=== PATIENT | male | born 1945 | race Caucasian/White ===

== ENCOUNTER 2024-11-24 10:16 | Emergency (ER) | payer OTHER, SELFPAY ==
[2024-11-24 10:21] VITALS: BP 128/80
--- NOTE | 2024-11-24 11:26 | ED.GENMED ---
History of Present Illness
<Rocio Puri MD, Resident - Last Filed: 11/24/24 14:09>
General
Chief Complaint: Musculo-Skeletal Complaint
Source: patient and family
Exam Limitations: none
Time Seen by Provider: 11/24/24 10:55
Nursing documentation reviewed up to this point in time: agreed with
History of Present Illness
History of Present Illness:
79yo M with H CAD/AZ s/p stenting/pacemaker, s/p bilateral knee arthroscopy, gouty arthritis who presents to ED from home for right leg pain. The pain began in his right buttocks a few days ago and has been intermittent. Last night the pain
worsened and he has shooting pain down the front and outside of thigh, and knee pain. No alleviating factors including aleve, topical icyhot, rest, positional changes. Aggravating factors include raising leg or weightbearing-- though he is still
able to walk on it and denies weakness. He denies inciting injury. He has had muscle spasms in the past, though this feels different. Otherwise he is in his usual state of health.
Past History
<Rocio Puri MD, Resident - Last Filed: 11/24/24 14:09>
Past History
ED Past Medical History: CAD, CHF (HFrEF), GERD, HTN, Hypercholesterolemia, IDDM, AZ (January 2016 and September 2006), Renal failure and Other (Acute gouty arthritis, upper GI bleed, DJD, carotid artery stenosis, AV block)
ED Past Surgical History: Cardiac (cardiac cath, stenting, CABG 2019, pacemaker), Orthopedic (bilateral knee arthroscopy), Tonsilectomy and Other (R CEA 2019)
Social History
Tobacco: Former smoker
Alcohol: Occasional
Drug: None
Personal:
Living: with roommate
Family History
Family History: Hypertension
Review of Systems
<Rocio Puri MD, Resident - Last Filed: 11/24/24 14:09>
Review of Systems
Allergies reviewed?: Yes
Constitutional: Reports no symptoms
EENT: Reports no symptoms
Respiratory: Reports no symptoms
Cardiac: Reports no symptoms
ABD/GI: Reports no symptoms
: Reports no symptoms
Musculoskeletal: Reports other (see HPI)
Skin: Reports no symptoms
Neurological: Reports no symptoms
Endocrine: Reports no symptoms
Hematologic/Lymphatic: Reports no symptoms
Psychiatric: Reports no symptoms
Phy Exam
<Rocio Puri MD, Resident - Last Filed: 11/24/24 14:09>
Physical Exam
Physical Exam:
no visible trauma or visible/palpable deformity of right lower extremity, no erythema or joint effusions
tender to palpation right buttocks, right trochanteric bursa, right inferior knee
positive straight leg raise on right
active and passive range of motion in tact, 5/5 muscle strength throughout bilateral lower extremities
sensation intact bilateral lower extremities-- slightly diminished at baseline from diabetic neuropathy
General Physical Exam
General Presentation: well appearing and no apparent distress
General age: appears stated age
General Skin: warm and dry
General Habitus: normal and elderly
General Mental: alert
General Hydration: appears well hydrated
ENT Exam
ENT Exam: EOMI and normocephalic
Cardiovascular Exam
Cardiovascular Exam: regular rate/rhythm, no edema, no JVD and no murmur
Heart Sounds: normal
Pulmonary Exam
Pulmonary Exam: lungs clear, no respiratory distress, no crackles, no wheezing and no cough
Oxygen Status: room air
Respirations: other (nonlabored breathing)
Gastrointestinal Exam
Gastrointestinal Exam: normal bowel sounds, non tender, soft and non distended
Neurological Exam
Neurological Exam: alert, oriented x3, no motor deficits (motor strength 5/5 diffusely) and no sensory deficits
Musculoskeletal Exam
Musculoskeletal Exam: full ROM and no edema
Skin Exam
Skin Exam: normal color, warm/dry and no rash
Psychiatric Exam
Psychiatric Exam: normal mood/affect
Course
<Rocio Puri MD, Resident - Last Filed: 11/24/24 14:09>
Orders/Labs/Results
Orders:
Orders
11/24/24 11:56
Lidocaine [Lidocaine 4% Patch] 1 patch TOPICAL ONCE ONE
Apply Lidocaine patch(s) to:: right lumbar
11/24/24 11:57
Ketorolac [Toradol] 15 mg IM ONCE ONE
Vital Signs
Initial and Last Documented VS:
Initial Vital Signs
Temp Pulse Resp BP Pulse Ox
97.2 F 84 18 128/80 98
11/24/24 10:21 11/24/24 10:21 11/24/24 10:21 11/24/24 10:21 11/24/24 10:21
Last Documented Vital Signs
Temp Pulse Resp BP Pulse Ox
98.2 F 75 18 132/76 98
11/24/24 13:02 11/24/24 13:02 11/24/24 13:02 11/24/24 13:02 11/24/24 13:02
<Vanessa Conte, - Last Filed: 11/24/24 12:01>
Orders/Labs/Results
Orders:
Orders
11/24/24 11:56
Lidocaine [Lidocaine 4% Patch] 1 patch TOPICAL ONCE ONE
Apply Lidocaine patch(s) to:: right lumbar
11/24/24 11:57
Ketorolac [Toradol] 15 mg IM ONCE ONE
Vital Signs
Initial and Last Documented VS:
Initial Vital Signs
Temp Pulse Resp BP Pulse Ox
97.2 F 84 18 128/80 98
11/24/24 10:21 11/24/24 10:21 11/24/24 10:21 11/24/24 10:21 11/24/24 10:21
Last Documented Vital Signs
Temp Pulse Resp BP Pulse Ox
98.2 F 75 18 132/76 98
11/24/24 13:02 11/24/24 13:02 11/24/24 13:02 11/24/24 13:02 11/24/24 13:02
<Rocio Puri MD, Resident - Last Filed: 11/24/24 14:09>
MDM/Problems Addressed
Differential Diagnosis Includes:
sciatic pain, bursitis, muscle strain/spasm, chronic arthritis
not suspicious for septic arthritis or acute gouty flare given physical exam
also not suspicious for fracture or traumatic injury
MDM/Problems Addressed:
history and physical exam most consistent with sciatic pain
no indication for obtaining xrays in ED
will give im toradol and lidocaine patch while here for pain management
recommend supportive measures at home including ibuprofen, lidocaine patch
can try muscle relaxant with caution-- discussed side effects with patient and family
considered trial of steroids however deferred due to diabetes requiring insulin and unknown sugar control (patient does not check blood sugars at home)
recommend following up with pcp, may benefit from physical therapy
reviewed return to ED precautions
discussed above with patient and family at bedside, they are understanding and agreeable to plan
Chronic conditions affecting care: DM, HTN and CAD
<Rocio Puri MD, Resident - Last Filed: 11/24/24 14:09>
*Critical Care Note
Total Time (30-74mins, 75-104mins- exclusive of procedures): Not Applicable
ED Attending Note
<Rocio Puri MD, Resident - Last Filed: 11/24/24 14:09>
-
Portions of this chart may have been created with voice recognition software.� Occasional wrong word or��sound alike� substitutions may have occurred due to the inherent limitations of voice recognition software.
<Vanessa Conte DO - Last Filed: 11/24/24 12:01>
ED Attending Note
Patient seen and examined by attending physician: Yes
I performed the substantive portion of visit, reviewed & personally made and approve the management plan that is documented in note by myself or ANA PAULA.: Yes
I performed a history and physical exam of patient and discussed management with resident, I reviewed resident's note and agree with documented findings and plan of care.: Yes
ED Attending Note:
79-year-old male with history of CKD, diabetes, CAD presenting to the emergency department for right-sided back pain. Patient reports right lower lumbar/buttock pain which started last evening, worsened today. Pain radiates down his leg, stops at
his knee. Pain is described as a shooting and burning pain. Denies inciting injury or trauma. Tried Aleve with moderate relief of pain. Denies numbness or tingling to his leg. Denies any recent fever or illness. Denies bowel or bladder issues.
Vital signs are normal.
On exam, patient is resting comfortably, no acute distress or discomfort. Mild generalized tenderness to the right lower lumbar/gluteal region. No overlying skin changes. No swelling or deformity to the right lower extremity with range of motion
intact. Distal sensation and pulses intact to the right lower extremity. No swelling or deformity to the right knee. No erythema or warmth to the extremity, no infectious findings. Symptoms appear most consistent with acute sciatica. No
concerning features on exam. No indication for imaging. Will treat patient with Toradol and lidocaine patch. Will prescribe muscle relaxer and ibuprofen, as well as lidocaine patch. Cautioned against somnolence for muscle relaxer. Otherwise
feel stable for discharge with outpatient PCP follow-up. Explained that if symptoms or not getting better, may need follow-up for physical therapy
Discharge Plan
Departure
Patient Disposition: Home (Routine Discharge)
Date of Disposition: 11/24/24
Time of Disposition: 12:13
Patient with high blood pressure during this ER visit?: No
Discharge Problem:
Sciatic leg pain
Instructions: Sciatica ED
Prescriptions:
New
cyclobenzaprine 10 mg tablet
10 mg PO BID PRN (Reason: muscle spasm) Qty: 14 0RF
ibuprofen 600 mg tablet
600 mg PO Q8H PRN (Reason: Pain) Qty: 20 0RF
lidocaine 4 % adhesive patch,medicated
1 patch topical BID PRN (Reason: Pain) Qty: 10 0RF
No Action
aspirin 81 MG tablet,delayed release (DR/EC)
81 mg PO DAILY Qty: 0 0RF
(DME) pen needle, diabetic 1 EACH needle
1 ea MC QID Qty: 200 0RF
Rx Instructions:
E11.65
BD RADHA pen needles
clopidogrel 75 MG tablet
75 mg PO DAILY Qty: 30 3RF
metoprolol succinate 25 MG tablet extended release 24 hr
25 mg PO DAILY Qty: 30 1RF
furosemide [Lasix] 20 MG tablet
20 mg PO DAILY Qty: 5 0RF
isosorbide mononitrate 10 MG tablet
10 mg PO BID
insulin glargine [Lantus Solostar U-100 Insulin] 300 UNITS/3 ML insulin pen
16 units SC DAILY@0800
atorvastatin 80 mg Tablet
80 mg PO QPM
fenofibrate nanocrystallized 145 mg Tablet
145 mg PO DAILY
Jardiance 25 mg Tablet
25 mg PO DAILY
nitroglycerin [nitroglycerin] 0.4 mg tablet, sublingual
0.4 mg sublingual [id number] PRN (Reason: chest pain) Qty: 25 2RF
insulin aspart U-100 [Novolog FlexPen U-100 Insulin] 300 UNITS/3 ML insulin pen
8 unit SC AC Qty: 0 0RF
Referrals:
Rich Cardona DO [Family Provider] -
Interventions
Interventions:
*Risk Screen - Suicide Last Done: 11/24/24 10:21
*General Assessment Last Done: 11/24/24 10:21
*Neglect/Abuse Screening Last Done: 11/24/24 10:21
ED- Fall Risk Assessment Last Done: 11/24/24 12:37
*ED COVID-19 Vaccine History Last Done: 11/24/24 12:41
*Nursing Disposition Last Done: 11/24/24 13:02
ED-Musculoskeletal Assessment Last Done: 11/24/24 12:37
Discharge Date and Time
Discharge Date/Time: 11/24/24 13:00
Print Language: KOSOVAN
[2024-11-24 12:37] VITALS: BP 132/78; BMI 26.7
[2024-11-24] MEDS: TORADOL 15 MG IM (12:46)
[2024-11-24] MEDS: LIDOCAINE 4% PATCH 1 PATCH TOPICAL (12:46)
[2024-11-24 13:02] VITALS: BP 132/76
--- NOTE | 2024-11-24 13:02 | EDRN ---
Reviewed discharge instructions with patient. Verbalized understanding. Taken to car in wheelchair.
== END 2024-11-24 13:00 | disposition home or self-care (01) ==
LOC: EMR 10:16
PROVIDERS: EMERGENCY PHYSICIAN Student in an Organized Health Care Education/Training Program; FAMILY PHYSICIAN Family Medicine
DX: M79.604 Pain in right leg (principal); M25.551 Pain in right hip; M54.9 Dorsalgia, unspecified; I25.10 Atherosclerotic heart disease of native coronary artery without angina pectoris; M10.9 Gout, unspecified; I13.0 Hypertensive heart and chronic kidney disease with heart failure and stage 1 through stage 4 chronic kidney disease, or unspecified chronic kidney disease; N18.9 Chronic kidney disease, unspecified; I50.9 Heart failure, unspecified; E11.22 Type 2 diabetes mellitus with diabetic chronic kidney disease; E11.40 Type 2 diabetes mellitus with diabetic neuropathy, unspecified; I25.2 Old myocardial infarction; Z95.0 Presence of cardiac pacemaker; Z79.4 Long term (current) use of insulin; E78.00 Pure hypercholesterolemia, unspecified; K21.9 Gastro-esophageal reflux disease without esophagitis; I44.30 Unspecified atrioventricular block; Z95.1 Presence of aortocoronary bypass graft; Z95.5 Presence of coronary angioplasty implant and graft; Z87.891 Personal history of nicotine dependence; M19.90 Unspecified osteoarthritis, unspecified site
CPT/HCPCS: 99283